=== PATIENT | male | born 1965 | race Caucasian/White ===

== ENCOUNTER 2017-01-27 13:24 | Day surgery (SDC) | payer OTHER ==
[~2017-01-27] VITALS: Ht 168.9 cm; Wt 64.8 kg
[~2017-01-27 13:24] MED LIST: FLEXERIL10 MG PO; LIDOCAINE HCL35 GM TP; MOBIC7.5 MG PO; MS CONTIN,ORAMO15 M1 PO; NEURONTIN400 MG PO; ROXICODONE5 MG PO; ULTRAM50 MG PO; VALIUM5 MG PO
== END 2017-01-27 14:38 | disposition home or self-care (01) ==
LOC: PAIN 13:24
PROC: 3E0S33Z Introduction of Anti-inflammatory into Epidural Space, Percutaneous Approach (ICD-10-PCS; principal; 2017-01-27)
DX: M54.16 Radiculopathy, lumbar region (principal); F41.9 Anxiety disorder, unspecified; M43.10 Spondylolisthesis, site unspecified; F17.200 Nicotine dependence, unspecified, uncomplicated; B18.2 Chronic viral hepatitis C; J44.9 Chronic obstructive pulmonary disease, unspecified
CPT/HCPCS: J1100; J2250; J3010

== ENCOUNTER 2017-04-08 13:27 | Day surgery (SDC) | payer OTHER ==
[~2017-04-08] VITALS: Ht 168.9 cm; Wt 64.8 kg
[2017-04-14] MEDS ORDERED: HARVONI 90-4001 EACH PO (12:00)
== END 2017-04-08 14:55 | disposition home or self-care (01) ==
LOC: PAIN 13:27 → SDC 14:45 → PAIN 14:55
DX: M47.26 Other spondylosis with radiculopathy, lumbar region (principal); M43.16 Spondylolisthesis, lumbar region; B18.2 Chronic viral hepatitis C; J44.9 Chronic obstructive pulmonary disease, unspecified; F17.210 Nicotine dependence, cigarettes, uncomplicated; Z79.891 Long term (current) use of opiate analgesic
CPT/HCPCS: J1030; J2250; J3010; S0020

== ENCOUNTER 2017-04-15 12:40 | Day surgery (SDC) | payer OTHER ==
[~2017-04-15] VITALS: Ht 168.9 cm; Wt 64.8 kg
[~2017-04-15 12:40] MED LIST changes: +HARVONI 90-4001 EACH PO
== END 2017-04-15 13:32 | disposition home or self-care (01) ==
LOC: PAIN 12:40 → SDC 14:45
DX: M47.26 Other spondylosis with radiculopathy, lumbar region (principal); M51.16 Intervertebral disc disorders with radiculopathy, lumbar region; J44.9 Chronic obstructive pulmonary disease, unspecified; B18.2 Chronic viral hepatitis C; Z79.891 Long term (current) use of opiate analgesic; F17.210 Nicotine dependence, cigarettes, uncomplicated
CPT/HCPCS: J1030; J2250; J3010; S0020

== ENCOUNTER 2017-08-19 07:00 | Day surgery (SDC) | payer OTHER ==
[~2017-08-19] VITALS: Ht 167.6 cm; Wt 64.8 kg
== END 2017-08-19 08:30 | disposition home or self-care (01) ==
LOC: PAIN 07:00 → SDC 07:30 → PAIN 08:30
DX: M47.26 Other spondylosis with radiculopathy, lumbar region (principal); M54.5 Low back pain; G89.29 Other chronic pain; J44.9 Chronic obstructive pulmonary disease, unspecified; B18.2 Chronic viral hepatitis C; F17.200 Nicotine dependence, unspecified, uncomplicated; Z79.891 Long term (current) use of opiate analgesic
CPT/HCPCS: J1030; J2250; J3010; S0020

== ENCOUNTER 2017-08-26 07:00 | Day surgery (SDC) | payer OTHER ==
[~2017-08-26] VITALS: Ht 172.7 cm; Wt 68.0 kg
[~2017-08-26 07:00] MED LIST changes: +MOTRIN800 MG PO
== END 2017-08-26 08:35 | disposition home or self-care (01) ==
LOC: PAIN 07:00 → SDC 07:30 → PAIN 08:35
DX: M47.26 Other spondylosis with radiculopathy, lumbar region (principal); M51.16 Intervertebral disc disorders with radiculopathy, lumbar region; J44.9 Chronic obstructive pulmonary disease, unspecified; B18.2 Chronic viral hepatitis C; F17.200 Nicotine dependence, unspecified, uncomplicated; Z79.891 Long term (current) use of opiate analgesic
CPT/HCPCS: J1030; J2250; J3010; S0020